=== PATIENT | male | born 1965 ===

== ENCOUNTER 2018-07-11 09:42 | Emergency (ER) | payer SELFPAY ==
[2018-07-11 10:14] VITALS: BP 94/62; PULSE 96; RESP 20; TEMP 98.9; O2SAT 96
--- NOTE | 2018-07-11 10:20 | C.PDOC ---
History Of Present Illness 53 year old male presents to the ED for evaluation of a cough for the last week. Patient states he has taken over the counter mediations prior to his visit with no improvement and requests a stronger medication to alleviate his symptoms. Admits to smoking 8 cigarettes a day. Denies other flu like symptoms, fever, nausea, vomiting, diarrhea, and any other associated symptoms. Time Seen by Provider: 07/11/18 09:59 Chief Complaint (Nursing): Cough, Cold, Congestion History Per: Patient History/Exam Limitations: no limitations Onset/Duration Of Symptoms: Days Current Symptoms Are (Timing): Still Present Associated Symptoms: Cough Past Medical History Reviewed: Historical Data, Nursing Documentation, Vital Signs Vital Signs: Last Vital Signs Temp 98.9 F 07/11/18 09:55 Pulse 96 H 07/11/18 09:55 Resp 20 07/11/18 09:55 BP 94/62 L 07/11/18 09:55 Pulse Ox 96 07/11/18 09:55 Family History: States: Unknown Family Hx - Social History Hx Alcohol Use: No Hx Substance Use: No Review Of Systems Except As Marked, All Systems Reviewed And Found Negative. Constitutional: Negative for: Fever, Chills Cardiovascular: Negative for: Chest Pain Respiratory: Positive for: Cough Gastrointestinal: Negative for: Nausea, Vomiting, Diarrhea Physical Exam - Physical Exam Appears: Non-toxic Skin: Normal Color, Warm, Dry Head: Atraumatic, Normacephalic Eye(s): bilateral: Normal Inspection Nose: Normal, No Discharge Oral Mucosa: Moist Respiratory: Normal Breath Sounds, No Accessory Muscle Use, No Rales, No Rhonchi, No Wheezing, Other (intermittent cough. ) Neurological/Psych: Oriented x3, Normal Speech Gait: Steady ED Course And Treatment O2 Sat by Pulse Oximetry: 96 (RA) Pulse Ox Interpretation: Normal Medical Decision Making Medical Decision Making: Progress/Update: Patient stable for discharge home. Prescribed Benzonatate. Disposition - Disposition Disposition: HOME/ ROUTINE Disposition Time: 10:50 Condition: GOOD Additional Instructions: WOLF ORTIZ, thank you for letting us take care of you today. Your provider was Katlin Crouch MD and you were treated for CONGESTION. The emergency medical care you received today was directed at your acute symptoms. If you were prescribed any medication, please fill it and take as directed. It may take several days for your symptoms to resolve. Return to the Emergency Department if your symptoms worsen, do not improve, or if you have any other problems. Please contact your doctor or call one of the physicians/clinics you have been referred to that are listed on the Patient Visit Information form that is included in your discharge packet. Bring any paperwork you were given at discharge with you along with any medications you are taking to your follow up visit. Our treatment cannot replace ongoing medical care by a primary care provider outside of the emergency department. Thank you for allowing the [facility] team to be part of your care today. If you had an X-Ray or CT scan: A Radiologist will review the ED reading if any change in treatment is needed we will contact you. If you had a blood, urine, or wound culture: It will take several days for the results, if any change in treatment is needed we will contact you. If you had an STI test: It will take 48 hours for the results. Please call after 1 week if you have not heard back. Prescriptions: Benzonatate [Tessalon Perles] 100 mg PO TID #12 sgl Instructions: Upper Respiratory Infection (ED) Forms: [employer] (Tajik) - Clinical Impression Clinical Impression: Cough - Scribe Statement The provider has reviewed the documentation as recorded by the Scribe (Jacey Arzate) Provider Attestation: All medical record entries made by the Scribe were at my direction and personally dictated by me. I have reviewed the chart and agree that the record accurately reflects my personal performance of the history, physical exam, medical decision making, and the department course for this patient. I have also personally directed, reviewed, and agree with the discharge instructions and disposition.
== END 2018-07-11 10:50 | disposition home or self-care (01) ==
LOC: C.ER 09:42
DX: R05 Cough (principal)